=== PATIENT | male | born 1955 | race Caucasian/White ===

== ENCOUNTER 2023-12-06 15:23 | Emergency (ER) | payer MEDICARE, OTHER, SELFPAY ==
[2023-12-06] VITALS (8 sets, daily range): BP systolic 103–151; BP diastolic 65–91; BMI 28.1
[2023-12-06 15:32] LABS: Glucose - Point of Care 117 mg/dl (70-99)
[2023-12-06 15:55] LABS: % Basophils 0.6 % (0-2); % Eosinophils 2.2 % (0-6); % Immature Granulocytes 0.5 % (0-0.5); % Monocytes 6.6 % (1.7-9.3); % Neutrophils 67.1 % (42.2-75.2); Absolute Basophils 0.1 10^3/uL (0-0.2); Absolute Eosinophils 0.2 10^3/uL (0-0.7); Absolute Lymphocytes 1.8 10^3/uL (1.2-3.4); Absolute Monocytes 0.5 10^3/uL (0.1-0.6); Absolute Neutrophils 5.3 10^3/uL (1.4-6.5); Hematocrit 35.4 % (39.0-52.0); Hemoglobin 12.4 g/dL (13.0-18.0); Mean Corpuscular Hgb 30.2 pg (27.0-31.0); Mean Corpuscular Volume 86.1 fL (80.0-94.0); Mean Platelet Volume 9.7 fL (7.4-10.4); Nucleated Red Blood Cells % 0 % (-); Platelet Count 210 10^3/uL (130-400); Red Blood Cell Count 4.11 10^6/uL (4.70-6.10); Red Cell Dist. Width 12.7 % (11.5-14.5); White Blood Cell Count 7.9 10^3/uL (4.8-10.8)
[2023-12-06 16:05] LABS: ALT (SGPT) 19 U/L (0-50); AST (SGOT) 25 U/L (17-59); Albumin 3.5 g/dl (3.5-5.0); Alkaline Phosphatase 86 U/L (38-126); Blood Urea Nitrogen 31 mg/dl (9-20); Calcium 8.9 mg/dl (8.4-10.2); Carbon Dioxide 21 mmol/L (22-30); Chloride 109 mmol/L (98-107); Estimated Creatinine Clearance 56 ml/min; Glucose 119 mg/dl (70-99); Potassium 4.1 mmol/L (3.5-5.1); Sodium 140 mmol/L (135-145); Total Bilirubin 0.8 mg/dl (0.2-1.3); Total Protein 6.1 g/dl (6.3-8.2)
--- NOTE | 2023-12-06 20:29 | ED.GENMED ---
History of Present Illness
General
Chief Complaint: Visual Problem
Source: patient
Exam Limitations: none
Time Seen by Provider: 12/06/23 15:41
History of Present Illness
History of Present Illness:
This is 67-year-old male presents with loss of vision out of his left eye that began around 9 AM. The patient was recently at [facility] for a stroke. He now has been in rehab. Patient states that stroke really only affected his
right leg. Patient is on Eliquis. He denies pain. No headache. No other motor symptoms. Patient states that he was advised to come for evaluation.
Past History
Past History
ED Past Medical History: CVA, HTN, NIDDM and Hypothyroidism
Phy Exam
Physical Exam
Physical Exam:
CONSTITUTIONAL Patient alert and oriented to person, place and time. Well-appearing. Vital signs reviewed.
HEAD atraumatic, normocephalic.
EYES eyelids normal to inspection, Pupils equally round and reactive to light, Extraocular muscles intact, Conjunctiva normal, Sclera normal. Funduscopic exam: Loss of red reflex on the left. Unable to see retina on the left.
Bedside ultrasound shows debris noted in the left vitreous
NECK normal range of motion, Trachea midline, no jugular venous distention.
RESPIRATORY CHEST No respiratory distress noted, Chest expansion equal, Bilateral breath sounds clear.
CARDIOVASCULAR regular rate and rhythm, Heart sounds normal.
ABDOMEN abdomen nontender, Bowel sounds normal. No distention.
BACK normal inspection, no obvious deformities
UPPER EXTREMITY range of motion normal, Motor strength normal, no cyanosis, no edema.
LOWER EXTREMITY range of motion normal, Motor strength normal, no cyanosis, no edema.
NEURO Speech normal, No focal motor deficits, [place] coma scale 15, Memory normal, Cranial Nerves intact to screening exam. No pronator drift.
SKIN skin warm, dry, and normal in color.
PSYCHIATRIC patient oriented to person place and time, Normal affect.
Course
Orders/Labs/Results
Orders:
Orders
12/06/23 15:41
EKG [Electrocardiogram (*1)] Urgent
Reason for Study: TIA/Stroke
EKG- Treatment ONCE
12/06/23 15:42
CBC/With Diff [Complete Blood Count/With Diff] Urgent
CMP [Comprehensive Metabolic Panel] Urgent
Abnormal Lab Results
12/06/23 12/06/23
15:30 15:42
RBC 4.11 L 10^6/uL
(4.70-6.10)
Hgb 12.4 L g/dL
(13.0-18.0)
Hct 35.4 L %
(39.0-52.0)
Chloride 109 H mmol/L
(98-107)
Carbon Dioxide 21 L mmol/L
(22-30)
BUN 31 H mg/dl
(9-20)
Creatinine 1.5 H mg/dL
(0.7-1.3)
Glucose 119 H mg/dl
(70-99)
Total Protein 6.1 L g/dl
(6.3-8.2)
POC Glucose 117 H mg/dl
(70-99)
12/06/23 15:42
12/06/23 15:42
Vital Signs
Initial and Last Documented VS:
Initial Vital Signs
Temp Pulse Resp BP Pulse Ox
99.5 F 66 18 103/65 94
12/06/23 15:27 12/06/23 15:27 12/06/23 15:27 12/06/23 15:27 12/06/23 15:27
Last Documented Vital Signs
Temp Pulse Resp BP Pulse Ox
99.5 F 58 11 151/83 95
12/06/23 15:27 12/06/23 21:00 12/06/23 21:00 12/06/23 21:00 12/06/23 21:00
MDM/Problems Addressed
Differential Diagnosis Includes:
Central retinal artery occlusion, central retinal vein occlusion, retinal detachment, vitreous hemorrhage
MDM/Problems Addressed:
Vitreous hemorrhage
*Pulse Oximetry
Patient hypoxic: no
*Copy Worker Interpretation
Rate: normal
Interpretation: normal
Rhythm: sinus
*Critical Care Note
Total Time (30-74mins, 75-104mins- exclusive of procedures): 45 minutes
Data Reviewed
Source: patient
Further Testing Considered But Not Given:
Consider CT but suspect vitreous hemorrhage
Patient Management
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
Escalation/DeEscalation of care consider admission/obs:
Intraocular pressure was measured and is measured at 15
Patient appears well. Nonfocal motor exam. Suspect left vitreous hemorrhage. Complicated by Eliquis. Discussed with ophthalmology who would like to see the patient tomorrow at 1:45 PM. I think this is reasonable. Otherwise patient is eating
and no other complaints. recommended that he sit upright tonight
ED Attending Note
-
Portions of this chart may have been created with voice recognition software.� Occasional wrong word or��sound alike� substitutions may have occurred due to the inherent limitations of voice recognition software.
Discharge Plan
Departure
Patient Disposition: Home (Routine Discharge)
Date of Disposition: 12/06/23
Time of Disposition: 21:32
Patient with high blood pressure during this ER visit?: No
Discharge Problem:
Vitreous hemorrhage
Prescriptions:
No Action
atorvastatin 80 mg Tablet
80 mg PO DAILY
acetaminophen 325 mg Tablet
650 mg PO Q6HPRN PRN (Reason: mild pain/temp>100)
metoprolol succinate 50 mg Tablet Extended Release 24 Hr
75 mg PO DAILY
aspirin 81 mg Tablet,Delayed Release (Dr/Ec)
81 mg PO DAILY
glimepiride 2 mg Tablet
2 mg PO DAILY
levothyroxine 75 mcg Tablet
75 mcg PO DAILY
magnesium hydroxide [Milk of Magnesia] 400 mg/5 mL Suspension
30 ml PO DAILYPRN PRN (Reason: if no bm x 3 days)
amlodipine 10 mg Tablet
10 mg PO DAILY
bisacodyl [Dulcolax (bisacodyl)] 10 mg Suppository
10 mg DE DAILYPRN PRN (Reason: if mom ineffective)
flecainide 100 mg Tablet
100 mg PO Q12H
Fleet Enema 19-7 gram/118 mL Enema
118 ml DE DAILYPRN PRN (Reason: if dulcolax ineffective)
gabapentin 300 mg Capsule
300 mg PO TID
vitamin B complex Tablet
1 tab PO DAILY
losartan 100 mg Tablet
50 mg PO Q12H
fluticasone propionate 50 mcg/actuation [place],Suspension
2 spray INTRANASAL DAILY
Eucerin Plus Cream
1 applic TOPICAL QPM
Januvia 100 mg Tablet
100 mg PO DAILY
cholecalciferol (vitamin D3) 10 mcg (400 unit) Tablet,Chewable
10 mcg PO DAILY
Eliquis 5 mg Tablet
5 mg PO BID
Referrals:
Prabha Hightower NP [Family Provider] -
Lyle Rainey MD [Active] -
Activity Restrictions/Additional Instructions:
Vitreous hemorrhage
Please see ophthalmology tomorrow at 1:30 PM. Please be sure to sit and remain upright as discussed. Return immediately for weakness of any kind, worsening vision changes, headache, pain of any kind or any other concerns.
Interventions
Interventions:
*Risk Screen - Suicide Last Done: 12/06/23 15:27
*General Assessment Last Done: 12/06/23 15:27
*Neglect/Abuse Screening Last Done: 12/06/23 15:27
ED- Fall Risk Assessment Last Done: 12/06/23 15:50
*ED COVID-19 Vaccine History Last Done: 12/06/23 15:38
ED- Neurological Assessment Last Done: 12/06/23 15:50
ED-EENT Assessment Last Done: 12/06/23 15:50
ED Swallowing Screen Last Done: 12/06/23 15:50
Discharge Date and Time
Print Language: NIGERIEN
== END 2023-12-06 23:46 | disposition home or self-care (01) ==
LOC: EMR 15:23
PROVIDERS: EMERGENCY PHYSICIAN Emergency Medicine; FAMILY PHYSICIAN Nurse Practitioner Family
DX: H43.10 Vitreous hemorrhage, unspecified eye (principal); E11.9 Type 2 diabetes mellitus without complications; I10 Essential (primary) hypertension; E03.9 Hypothyroidism, unspecified; Z79.01 Long term (current) use of anticoagulants; Z86.73 Personal history of transient ischemic attack (TIA), and cerebral infarction without residual deficits
CPT/HCPCS: 99283; 80053; 82962; 85025; 93005